=== PATIENT | female | born 1940 | race Caucasian/White ===

== ENCOUNTER → 2017-09-12 | Outpatient (CLI) | payer BC | END | disposition home or self-care (01) | LOC: PCVCIMAG 13:26 | DX: I65.23 Occlusion and stenosis of bilateral carotid arteries (principal); E11.9 Type 2 diabetes mellitus without complications | CPT/HCPCS: 93306; 93880 ==

== ENCOUNTER → 2018-09-20 | Outpatient (CLI) | payer BC ==
--- NOTE | 2018-09-20 12:37 | PCVCIMAG ---
APPROVED REPORT Indications Stenosis Risk Factors Hyperlipidemia Diabetes, Doppler Spectral Velocity Analysis PSV / EDVPSV / EDV ECA (R) 72 / 8 cm/sECA (L) 125 / 5 cm/s dICA (R) 49 / 18 cm/sdICA (L) 87 / 22 cm/s Gayathri (R) 89 / 20 cm/smICA (L) 109 / 28 cm/s pICA (R) 113 / 31 cm/spICA (L) 117 / 29 cm/s Bulb (R) 69 / 17 cm/sBulb (L) 81 / 16 cm/s dCCA (R) 62 / 12 cm/sdCCA (L) 74 / 18 cm/s mCCA (R) 55 / 13 cm/smCCA (L) 70 / 16 cm/s Vert (R) 27 / 8 cm/sVert (L) 45 / 9 cm/s ICA/CCA 1.82ICA/CCA 1.58 Basic Measurements Blood Pressure: Pulses: Right Left RightLeft Brachial(Sitting) 152/85ghBl925/82mmHgTemporal Real Time B-Mode Imaging Vert. (R)AntegradeVert. (L)Antegrade Findings The right carotid bulb has moderate calcified plaque. The right proximal internal carotid artery shows 40-50% stenosis. The right common carotid artery shows <40% stenosis. The right external carotid artery shows no significant stenosis. The left carotid bulb has moderate calcified plaque. The left proximal internal carotid artery shows 40-50% stenosis. The left common carotid artery shows <40% stenosis. The left external carotid artery shows no significant stenosis. Conclusion 1. Bilateral common carotid artery stenoses (<40%) 2. Bilateral internal carotid artery stenoses (40-50%) 3. Antegrade vertebral flow
--- NOTE | 2018-09-20 13:00 | PCVCIMAG ---
APPROVED REPORT Study performed: 09/20/2018 10:53:13 EXAM: Comprehensive 2D, Doppler, and color-flow Echocardiogram Patient Location: Echo lab Room #: 2Status: routine BSA: 1.93 HR: 72 bpmBP: 146/82 mmHg Rhythm: NSR Other Information Study Quality: Adequate Indications Pacemaker CAD Cardiomyopathy HX: heart failure,dilated CM, ICD 2D Dimensions IVSd: 7.01 (7-11mm)LVOT Diam: 19.75 (18-24mm) LVDd: 56.76 mm PWd: 7.70 (7-11mm)Ascending Ao: 31.89 (22-36mm) LVDs: 46.94 (25-40mm) Left Atrium: 33.19 (27-40mm) Aortic Root: 24.98 mm LV Single Plane 4CH: 29.43 % LV Single Plane 2CH: 34.93 % Biplane EF: 33.1 % Volumes Left Atrial Volume (Systole) Single Plane 4CH: 72.81 mLSingle Plane 2CH: 74.93 mL Biplane LA Volume: 76.00 mLLA ESV Index: 39.00 mL/m2 Aortic Valve AoV Peak Dipak.: 1.46 m/s AO Peak Gr.: 8.55 mmHgLVOT Max P.01 mmHg LVOT Max V: 0.69 m/s RADHA Vmax: 1.45 cm2 AI Vmax: 4.34 m/s AI [facility]: 3.85 m/s2 AI PHT: 327.04 ms Mitral Valve E/A Ratio: 0.5 MV Decel. Time: 238.31 ms MV E Max Dipak.: 0.46 m/s MV A Dipak.: 0.97 m/s IVRT: 110.73 ms TDI E/Lateral E': 15.33E/Medial E': 15.33 Medial E' Dipak.: 0.03 m/s Lateral E' Dipak.: 0.03 m/s Pulmonary Valve PV Peak Dipak.: 0.82 m/sPV Peak Gr.: 2.67 mmHg Pulmonary Vein P Vein S: 0.32 m/sP Vein A: 0.18 m/s P Vein D: 0.27 m/sP Vein A Dur.: 72.7 msec P Vein S/D Ratio: 1.19 Tricuspid Valve TR Peak Dipak.: 2.55 m/s TR Peak Gr.: 26.03 mmHg TV Vmax: 0.56 m/sPA Pressure: 33.00 mmHg Left Ventricle Left ventricle is borderline dilated. There is global moderate hypokinesis of the left ventricle. There is normal left ventricular wall thickness. Left ventricular systolic function is severely decreased. LVEF 30-35%. Mild diastolic dysfunction is present (impaired relaxation pattern). Right Ventricle The right ventricle is normal size. The right ventricular systolic function is normal. Atria Left atrium is mildly dilated. The right atrium size is normal. Aortic Valve Aortic valve is trileaflet, mildly sclerotic. Mild aortic regurgitation. There is no aortic valvular stenosis. Mitral Valve Mild mitral annular calcification Mild-moderate mitral regurgitation. No evidence of mitral valve stenosis. Tricuspid Valve The tricuspid valve is normal in structure. Trace to mild tricuspid regurgitation with a PA pressure of 33 mmHg. Pulmonic Valve The pulmonary valve is normal in structure. Trace pulmonic regurgitation. Great Vessels The aortic root is normal in size. The ascending aorta is normal in size. Aortic arch is normal in caliber. IVC is normal in size and collapses >50% with inspiration. Pericardium There is no pericardial effusion. There is no pleural effusion. <Conclusion> Left ventricular systolic function is severely decreased. LVEF 30-35%. Left atrium is mildly dilated. Aortic valve is trileaflet, mildly sclerotic, no stenosis. Mild aortic regurgitation. Mild mitral annular calcification Mild-moderate mitral regurgitation. Trace to mild tricuspid regurgitation with a pulmonary artery pressure of 33 mmHg. There is no pericardial effusion.
== END | disposition home or self-care (01) ==
LOC: PCVCIMAG 08:49
PROVIDERS: ATTEND Internal Medicine
DX: I08.3 Combined rheumatic disorders of mitral, aortic and tricuspid valves (principal); I65.23 Occlusion and stenosis of bilateral carotid arteries; J43.9 Emphysema, unspecified; I42.0 Dilated cardiomyopathy; I50.22 Chronic systolic (congestive) heart failure; E78.2 Mixed hyperlipidemia; G47.33 Obstructive sleep apnea (adult) (pediatric); E11.9 Type 2 diabetes mellitus without complications; Z91.048 Other nonmedicinal substance allergy status; Z88.6 Allergy status to analgesic agent
CPT/HCPCS: 93306; 93880